=== PATIENT | male | born 2000 | race Caucasian/White ===

== ENCOUNTER 2023-09-22 09:29 | Outpatient (AMB) | payer BC, SELFPAY ==
--- NOTE | 2023-09-22 09:46 | HO.NEPHOV ---
Vital Signs 09/22/23 09:48 Height 5 ft 4 in Weight 136 lb 6 oz BMI 23.4 BP 110/74 Blood Pressure Location Lt brachial Position Sitting Pulse 56 Pulse Source Pulse Oximeter Pulse Oximetry (%) 99 Oxygen Delivery Method Room Air Intake Visit Reasons: Hypertension/ Conf Nitrocellulose Operator Required: No Accompanied by: Self / Same As Patient Allergies amoxicillin Allergy (Verified 09/22/23 09:50) Unknown bee venom protein (honey bee) Allergy (Verified 09/22/23 09:50) Hives HPI Comments Details: Wilfred was seen in the office in follow up for his hypertension. 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 His renal USS in the past has shown mildly smaller right kidney. He had split function of the kidneys which showed 65 % function on the left and 35 % on the right. He monitors his BP at home and has been at goal. He does not have any LVH, retinopathy or proteinuria. He has no headache, visual disturbance, orthostatic symptoms, nausea, vomiting, diarrhea, edema, chest pain , SOB, PND, orthopnea . He is not very strict with low sodium in the diet but tries to keep it down. He is tolerating ACEI . He has no specific complaints at the time of this office visit. [facility] Medical History (Updated 09/22/23 @ 10:15 by Adrián Escobedo MD) Essential (primary) hypertension Surgical History (Updated 09/22/23 @ 09:50 by Kacy Mix MA) History of kidney surgery Family History (Updated 09/22/23 @ 09:52 by Kacy Mix MA) Paternal Uncle Prostate cancer Social History Alcohol intake: current Comment: Socially Patient Tobacco Use Status: Never used Tobacco Physical Exam Const General: comfortable and no acute distress Orientation/consciousness: patient oriented x3 HEENT Head: Yes normocephalic Mouth: Normal oral and palatal mucosa present Eyes EOM: EOMs intact bilaterally Neck Neck: Yes supple Resp Auscultation: clear to auscultation bilaterally Cardio Jugular venous distension: no JVD Rate: regular rate GI Palpation (GI): Soft to palpation Auscultation: normal bowel sounds General: Yes no CVA tenderness Back/Spine/Pelvis Back: no CVA tenderness Skin General skin exam: no rashes or lesions noted Neuro General: patient oriented x3 and moves all extremities Extrem General: Yes no pedal edema Results Reviewed Nephrology Results: No Data to Display Assessment & Plan Assessment & Plan (1) Hypertension: Code(s): I10 - Essential (primary) hypertension Category: Medical Qualifiers: Hypertension type: secondary to other renal disorders Qualified Code(s): I15.1 - Hypertension secondary to other renal disorders Plan He has secondary hypertension- renal related - given H/O right UPJ obstruction. He has smaller right kidney. Split function of the kidneys showed 65 % on the left and 35 % on the right. His BP is at goal. He is tolerating ACEI without any side effects. I have ordered renal functions, electrolytes, urine for protein as well as renal USS. He has no orthostatic symptoms. He maintains good hydration. He avoids NSAID's. I did not make any medication changes today. All questions answered. F/U given. Orders: Orders Creatinine Today I10 - Essential (primary) hypertension Blood Urea Nitrogen Today I10 - Essential (primary) hypertension Protein Creatinine Ratio, Ur Today I10 - Essential (primary) hypertension US renal BI Today I10 - Essential (primary) hypertension Electrolytes Today I10 - Essential (primary) hypertension Coding Level of Care Code Est Pt Level 4 (34770) Diagnoses Hypertension secondary to other renal disorders I15.1 Hypertension type: secondary to other renal disorders
[2023-09-22 09:48] VITALS: BP 110/74; PULSE 56; O2SAT 99; BMI 23.4
== END 2023-09-22 10:24 | disposition home or self-care (01) ==
PROVIDERS: PCP Hospitalist; Visit Provider Internal Medicine Nephrology
DX: I15.1 Hypertension secondary to other renal disorders (principal)
CPT/HCPCS: 99214

== ENCOUNTER → 2023-09-22 09:29 | Outpatient (BNVA) | payer BC, SELFPAY | PROVIDERS: PCP Hospitalist; Visit Provider Internal Medicine Nephrology ==

== ENCOUNTER 2023-09-22 10:16 | Outpatient (REF) | payer BC, SELFPAY ==
[2023-09-22 14:53] LABS: Anion Gap 8 (12-20); Blood Urea Nitrogen 17 mg/dL (9-16); Carbon Dioxide 29 mmol/L (22-29); Chloride 106 mmol/L (96-108); Estimated Glomerular Filt Rate > 60; Potassium 4.2 mmol/L (3.3-5.1); Sodium 139 mmol/L (135-145)
[2023-09-22 15:32] LABS: Creatinine Urine 113.66 mg/dL; Total Protein Urine Random < 7 mg/dL (<12)
== END 2023-09-22 10:17 | disposition home or self-care (01) ==
LOC: HO.HKASLDS 10:16
PROVIDERS: Visit Provider Internal Medicine Nephrology
DX: I10 Essential (primary) hypertension (principal)
CPT/HCPCS: 36415; 80051; 82565; 82570; 84156; 84520

== ENCOUNTER 2023-10-03 07:59 | Outpatient (REF) | payer BC, SELFPAY ==
--- NOTE | ~2023-10-03 | US_ITS ---
EXAMINATION: US RETROPERITONEAL LIMITED (RENAL ONLY) CLINICAL INFORMATION: History of right UPJ obstruction. COMPARISON: None available. TECHNIQUE: Real-time ultrasound of the kidneys FINDINGS: RIGHT KIDNEY: 11.0 x 5.8 x 4.3 cm (SAG x AP x TRV). The kidney is normal in size, contour, and echogenicity. Renal cortical thickness is normal. No focal parenchymal lesions. No hydronephrosis. Question of a 0.2 x 0.2 x 0.2 cm nonobstructing calculus in the mid kidney, not located in the UPJ region. LEFT KIDNEY: 12.3 x 6.7 x 5.0 cm (SAG x AP x TRV). The kidney is normal in size, contour, and echogenicity. Renal cortical thickness is normal. No calculi or focal parenchymal lesions. No hydronephrosis. US/US renal BI IMPRESSION: 1. Question of 0.2 cm nonobstructing calculus in the mid right kidney, not located in the UPJ region. 2. Normal appearance of the left kidney.
== END 2023-10-03 08:00 | disposition home or self-care (01) ==
LOC: HO.US 07:59
PROVIDERS: PCP Hospitalist; Visit Provider Internal Medicine Nephrology
DX: I10 Essential (primary) hypertension (principal)
CPT/HCPCS: 76775

== ENCOUNTER 2024-10-04 10:40 | Outpatient (AMB) | payer BC, SELFPAY ==
--- NOTE | 2024-10-04 10:44 | HO.NEPHOV_ITS ---
Vital Signs 10/04/24 10:45 Weight 134 lb 8 oz BP 118/78 Blood Pressure Location Lt brachial Position Sitting Pulse 59 Pulse Source Pulse Oximeter Pulse Oximetry (%) 99 Oxygen Delivery Method Room Air Intake Visit Reasons: 1 yr follow up-Conf Intake Note: Patient here for a follow-up. Superannuation Clerk Required: No Accompanied by: Self / Same As Patient Allergies amoxicillin Allergy (Verified 10/04/24 10:45) Unknown bee venom protein (honey bee) Allergy (Verified 10/04/24 10:45) Hives Do you need a note to return to daycare/school/sports/work: No HPI Comments Details: Wilfred was seen in the office in follow up for his hypertension. 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 His renal USS in the past has shown mildly smaller right kidney. He had split function of the kidneys which showed 65 % function on the left and 35 % on the right. He monitors his BP at home and has been at goal. He does not have any LVH, retinopathy or proteinuria. He has no headache, visual disturbance, orthostatic symptoms, nausea, vomiting, diarrhea, edema, chest pain , SOB, PND, orthopnea . He is not very strict with low sodium in the diet but tries to keep it down. He is tolerating ACEI . He has no specific complaints at the time of this office visit. [facility] Medical History Essential (primary) hypertension Surgical History History of kidney surgery Family History Paternal Uncle Prostate cancer Social History Alcohol intake: current Comment: Socially Patient Tobacco Use Status: Never used Tobacco Review of Systems Const All systems reviewed & are unremarkable except as noted in HPI and below Physical Exam Vital Signs: Last Vital Signs Pulse 59 10/04/24 10:45 BP 118/78 10/04/24 10:45 Pulse Ox 99 10/04/24 10:45 Oxygen Delivery Method Room Air 10/04/24 10:45 Const General: comfortable and no acute distress Orientation/consciousness: patient oriented x3 HEENT Head: Yes normocephalic Mouth: Normal oral and palatal mucosa present Eyes EOM: EOMs intact bilaterally Neck Neck: Yes supple Resp Auscultation: clear to auscultation bilaterally Cardio Jugular venous distension: no JVD Rate: regular rate GI Palpation (GI): Soft to palpation Auscultation: normal bowel sounds General: Yes no CVA tenderness Back/Spine/Pelvis Back: no CVA tenderness Skin General skin exam: no rashes or lesions noted Neuro General: patient oriented x3 and moves all extremities Extrem General: Yes no pedal edema Results Reviewed Nephrology Results: Sodium, (135-145) 139 mmol/L 09/22/23 Potassium, (3.3-5.1) 4.2 mmol/L 09/22/23 Chloride, (96-108) 106 mmol/L 09/22/23 Carbon Dioxide, (22-29) 29 mmol/L 09/22/23 BUN, (9-16) 17 mg/dL H 09/22/23 Creatinine, (0.5-1.4) 0.91 mg/dL 09/22/23 Urine Creatinine 113.66 mg/dL 09/22/23 Protein/Creatinin Ratio TNP 09/22/23 Renal US 10/03/23 Assessment & Plan Assessment & Plan (1) Hypertension: Code(s): I10 - Essential (primary) hypertension Category: Medical Qualifiers: Hypertension type: secondary to other renal disorders Qualified Code(s): I15.1 - Hypertension secondary to other renal disorders (2) Renal calculus: Code(s): N20.0 - Calculus of kidney Category: Medical Plan He has secondary hypertension- renal related - given H/O right UPJ obstruction. He has smaller right kidney. Split function of the kidneys showed 65 % on the left and 35 % on the right. His BP is at goal. He is tolerating ACEI without any side effects. I have ordered renal functions, electrolytes, urine for protein as well as renal USS. He has no orthostatic symptoms. He maintains good hydration. He avoids NSAID's. I did not make any medication changes today. All questions answered. F/U given. Orders: Orders Blood Urea Nitrogen Today I15.1 - Hypertension secondary to other renal disorders, N20.0 - Calculus of kidney Protein Creatinine Ratio, Ur Today I15.1 - Hypertension secondary to other renal disorders, N20.0 - Calculus of kidney Electrolytes Today I15.1 - Hypertension secondary to other renal disorders, N20.0 - Calculus of kidney Creatinine Today I15.1 - Hypertension secondary to other renal disorders, N20.0 - Calculus of kidney Calcium Today I15.1 - Hypertension secondary to other renal disorders, N20.0 - Calculus of kidney US renal BI 1 Month I15.1 - Hypertension secondary to other renal disorders, N20.0 - Calculus of kidney Medications: Refilled lisinopril 10 mg PO DAILY 90 tabs 4RF Coding Level of Care Code Est Pt Level 4 (59393) Diagnoses Hypertension secondary to other renal disorders I15.1 Hypertension type: secondary to other renal disorders Renal calculus N20.0
[2024-10-04 10:45] VITALS: BP 118/78; PULSE 59; O2SAT 99
--- OUTSIDE RECORDS SUMMARY | 2024-10-04 12:29 | XMS_ITS | Clinical Summary ---
Author Organization [facility] Address [address] [facility] [address] [place] [address] Phone Care Team Providers Care Triage Register Nurse Name Role Phone Yung Cancino MD Primary Care Provider Allergies Active Allergy Reactions Criticality Noted Date Comments Amoxicillin Other (see comments) 08/29/2020 Bee Venom Hives 10/03/2020 Medications lisinopril 10 MG tablet TAKE 1 TABLET BY MOUTH EVERY DAY 90 tablet 3 06/01/2022 Active EPINEPHrine (EPIPEN) 0.3 MG/0.3ML injection syringe INJECT 1 SYRINGE ONCE NEEDED DIRECTED 2PK 07/15/2022 Active Active Problems Problem Noted Date Diagnosed Date Essential hypertension 10/03/2020 Seasonal allergic conjunctivitis 10/03/2020 Immunizations Immunization Administration Dates Next Due DTaP 03/29/2003, 0,1998,1998,0 1998 Hep B, Adolescent or Pediatric 09/29/1999,1998,1998 HiB 07/13/1999,1998,1998 ,1998 IPV 03/29/2003,09/29/1999,1998 ,1998 MMR 03/29/2002,07/13/1999 Meningococcal MCV4P 12/02/2014,08/22/2009 Tdap 08/22/2009 Varicella 05/20/2008,03/30/1999 Family History Relation Status Comments Father Alive Mother Alive Social History Tobacco Use Types Packs/Day Years Used Date Smoking Tobacco: Never Smokeless Tobacco: Never Tobacco Cessation:Counseling Given: Not Answered Alcohol Use Standard Drinks/Week Comments Yes 0 (1 standard drink = 0.6 oz pure alcohol) Alcoholic Drinks/day: Occasional social drink Sex and Gender Information Value Date Recorded Sex Assigned at Not on file Legal Sex Male 4:56 PM EST Gender Identity Not on file Sexual Orientation Not on file Last Filed Vital Signs Vital Sign Reading Time Taken Comments Blood Pressure 120/72 10/05/2022 1:10 PM EDT Pulse 72 10/05/2022 1:10 PM EDT Temperature - - Respiratory Rate - - Oxygen Saturation - - Inhaled Oxygen Concentration - - Weight 64 kg (141 lb) 10/05/2022 1:10 PM EDT Height 165.1 cm (5' 5 ) 12/18/2019 12:00 PM EDT Body Mass Index 23.46 12/18/2019 12:00 PM EDT Plan of Treatment Health Maintenance Due Date Last Done Comments Pneumococcal Vaccine: Peds ( 0 to 5 Years) and At-Risk Patients (6 to 49 Years) (1 of 2 - PCV) 2017 Influenza Vaccine (Season Ended) 2024 Hepatitis B Vaccine Completed 09/29/1999, 1998, 1998 Insurance [facility] Care Teams Triage Register Nurse Relationship Specialty Start Date End Date Yung Cancino MD [address] [place] [address] PCP - General Internal Medicine 10/06/21
== END 2024-10-04 11:12 | disposition home or self-care (01) ==
LOC: HO.HKAS 10:40
PROVIDERS: PCP Hospitalist; Visit Provider Internal Medicine Nephrology
DX: I15.1 Hypertension secondary to other renal disorders (principal); N20.0 Calculus of kidney
CPT/HCPCS: 99214

== ENCOUNTER 2024-10-04 10:40 | Outpatient (REF) | payer BC, SELFPAY ==
[2024-10-04 18:14] LABS: Creatinine Urine 82.47 mg/dL; Total Protein Urine Random < 7 mg/dL (<12)
[2024-10-04 18:23] LABS: Anion Gap 11 (12-20); Blood Urea Nitrogen 15 mg/dL (9-16); Calcium 9.3 mg/dL (8.4-10.2); Carbon Dioxide 28 mmol/L (22-29); Chloride 105 mmol/L (96-108); Estimated Glomerular Filt Rate > 60; Potassium 4.2 mmol/L (3.3-5.1); Sodium 140 mmol/L (135-145)
== END 2024-10-04 10:41 | disposition home or self-care (01) ==
LOC: HO.HKASLDS 10:40
PROVIDERS: PCP Hospitalist; Visit Provider Internal Medicine Nephrology
DX: I15.1 Hypertension secondary to other renal disorders (principal); N20.0 Calculus of kidney
CPT/HCPCS: 36415; 80051; 82310; 82565; 82570; 84156; 84520

== ENCOUNTER 2024-11-06 08:57 | Outpatient (REF) | payer BC, SELFPAY ==
--- NOTE | ~2024-11-06 | US_ITS ---
CLINICAL HISTORY: I15.1 - Hypertension secondary to other renal disorders --- Additional Notes or Special Instructions: F U of renal calculus US of kidneys Comparison: US/SR - US KIDNEY BILATERAL - 10/03/2023 08:04 AM EDT Findings: Right kidney is normal in size, echogenicity and morphology, 11.6 cm in length. No calculus, mass or hydronephrosis. Left kidney is normal in size, echogenicity and morphology, 13.0 cm in length. No calculus, mass or hydronephrosis. Limited color Doppler demonstrates unremarkable bilateral blood flow. Impression: Normal renal ultrasound. This document has been electronically signed by: Lexy Harrison MD on 11/06/2024 15:21:36
--- OUTSIDE RECORDS SUMMARY | 2024-11-06 09:15 | XMS_ITS | Clinical Summary ---
Author Organization [facility] Address [address] [facility] [address] [place] [address] Phone Care Team Providers Care Telecommunications Analyst Name Role Phone Yung Cancino MD Primary Care Provider [phone] Allergies Active Allergy Reactions Criticality Noted Date [...] of 2 - PCV) 2017 Influenza Vaccine (#1) 2024 Hepatitis B Vaccine Completed 09/29/1999, 1998, 1998 Insurance [facility] Care Teams Telecommunications Analyst Relationship Specialty Start Date End Date Yung Cancino MD [address] [place] [address] PCP - General Internal Medicine 10/06/21
--- OUTSIDE RECORDS SUMMARY | 2024-11-06 09:15 | XMS_ITS | Patient Health Record ---
Author Organization [facility] Formerly [facility] Address [address] [place] [address] Care Team Providers Care Tax Specialist Name Role Phone JOSE RAMON LARA Primary Care Provider [phone] Harris Stewart Unavailable [phone] Allergies Allergen (clinical drug ingredient) Drug/Non Drug Allergy documented on EMR Reaction Allergy Type Onset Date Status amoxicillin Amoxicillin hives Drug Allergy Act tahira Bee Sting hives Allergy Active Results Component Value Reference Range Notes Glucose-[id number] Reviewed date:05/13/2024 10:33:34 PM Interpretation: Performing Lab:[facility], [address] [place] [address], Phone - [phone], [facility] Notes/Report: Glucose 86 70-99 mg/dL Vitamin D, 76-Snlmphd-[id number] Reviewed date:06/11/2024 03:25:10 PM Interpretation: Performing Lab:[facility], [address] [place] [address], Phone - [phone], [facility] Notes/Report: Vitamin D, 25-Hydroxy 36.7 30.0-100.0 ng/mL Vitamin D deficiency has been defined by the [place] [employer] and an Endocrine Society practice guideline as a level of serum 25-OH vitamin D less than 20 ng/mL (1,2). The Endocrine Society went on to further define vitamin D insufficiency as a level between 21 and 29 ng/mL (2). 1. IOM ([place] [employer]). 2010. Dietary reference intakes for calcium and D. [place]: The National Academies Press. 2. Chuck MF, Susie NC, Pranay WIN, et al. Evaluation, treatment, and prevention of vitamin D deficiency: an Endocrine Society clinical practice guideline. JCEM. 2010; 96(7):1911-30. TSH+Free T4 Reviewed date:06/11/2024 03:25:04 PM Interpretation: Performing Lab:[facility], [address] [facility], Phone - [phone], Director - [facility] Notes/Report: TSH-ICMA 1.9 Reference Range: Non- Adult 0.450-4.500 Free T4 by Dialysis/Manager Lvn 1.6 This test was developed and its performance characteristics determined by [facility]. It has not been cleared or approved by the Food and Drug Administration. Reference Range: Pubertal Children and Adults: 0.8 - 1.7 Comp. Metabolic Panel (14)-3 [id number] Reviewed date:04/27/2024 08:02:03 AM Interpretation: Performing Lab:[facility]anne [facility]go, [address] [facility], Phone - [phone], Director - [facility] Notes/Report: Glucose 100 70-99 mg/dL BUN 13 6-20 mg/dL Creatinine 0.93 0.76-1.27 mg/dL eGFR 116 >59 mL/min/1.73 BUN/Creatinine Ratio 14 9-20 Sodium 139 134-144 mmol/L Potassium 4.7 3.5-5.2 mmol/L Chloride 103 96-106 mmol/L Carbon Dioxide, Total 24 20-29 mmol/L Calcium 9.7 8.7-10.2 mg/dL Protein, Total 6.7 6.0-8.5 g/dL Albumin 4.4 4.3-5.2 g/dL Globulin, Total 2.3 1.5-4.5 g/dL Bilirubin, Total 0.9 0.0-1.2 mg/dL Alkaline Phosphatase 73 44-121 IU/L AST (SGOT) 28 0-40 IU/L ALT (SGPT) 33 0-44 IU/L Lipid Panel-[id number] Reviewed date:04/27/2024 08:02:08 AM Interpretation: Performing Lab:Joanne Ngo, [address] [facility], [place], Phone - [phone], Director - [facility] Notes/Report: Cholesterol, Total 138 100-199 mg/dL Triglycerides 51 0-149 mg/dL HDL Cholesterol 45 >39 mg/dL VLDL Cholesterol Mitch 11 5-40 mg/dL LDL Chol Calc (NIH) 82 0-99 mg/dL Albumin/Creatinine Ratio,Uri ne-[id number] Reviewed date:04/27/2024 08:02:15 AM Interpretation: Performing Lab:[facility], [address], [place], Phone - [phone], Director - Mao Notes/Report: Creatinine, Urine 91.0 Not Estab. mg/dL Albumin, Urine <3.0 Not Estab. ug/mL Alb/Creat Ratio <3 0-29 mg/g creat Normal: 0 - 29 Moderately increased: 30 - 300 Severely increased: >300 Reason For Referral No Information Medications Medication SIG (Take, Route, Frequency, Duration) Notes Start Date End Date Status EpiPen 2-Zeus 0.3 MG/0.3ML as directed In jection once, as needed; Duration: 90 days 07/01/2020 Active EPINEPHrine 0.3 MG/0.3ML INJECT 1 SYRING E ONCE NEEDED DIRECTED; Duration: 2 Active Lisinopril 10 MG 1 tablet Orally Once a day Active Multivitamin - 1 tablet Orally Once a day Active Immunizations Vaccine Route Administration Date Status Comme nts TDAP Unknown 08/22/2009 Administered Social History Tobacco Use: Social History Observation Description Date Details (start date - stop date) Never Smoker NA - NA Tobacco Use/Smoking Question Answer Notes Are you a nonsmoker AUDIT-C (Standard) Question Answer Notes Did you have a drink contain ing alcohol in the past year? Yes How often did you have six o r more drinks on one occasion in the past year? Less than monthly (1 point) How many drinks did you have on a typical day when you were drinking in the past year? 1 or 2 drinks (0 point) How often did you have a dri nk containing alcohol in the past year? 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 Problem Essential hypertension (01295348) Essential (primary) hypertension (I10) Active confirmed Vital Signs Heart Rate 51 /min 10/24/2024 Temperature 97.0 degrees Fahrenheit 10/24/2024 Blood pressure diastolic 74 mm Hg 10/24/2024 Oximetry 100 % 10/24/2024 Height 64 in 10/24/2024 Blood pressure systolic 110 mm Hg 10/24/2024 Weight 132.7 lbs 10/24/2024 BMI 22.78 kg/m2 10/24/2024 Encounters Encounter Location Date Provider Diagnosis [facility] [address] [place] [address] 04/26/2024 Harris Stewart Encounter for genera l adult medical examination without abnormal findings Z00.00 ; Essential (primary) hypertension I10 and Congenital occlusion of ureteropelvic junction Q62.11 [facility] [address] [place] [address] 10/24/2024 Harris Stewart Hypertension seconda ry to other renal disorders I15.1 and Congenital occlusion of ureteropelvic junction Q62.11 [facility] [address] [place] [address] 04/13/2024 JOSE RAMON LARA Essential (primary) hypertension I10 and Encounter for screening for cardiovascular disorders Z13.6 [facility] [address] [facility] [address] [place] [address] 09/28/2024 JOSE RAMON LARA Assessments Encounter Date Diagnosis (ICD Code) Assessment Notes Treatment Notes Treatment Clinical Notes Section Notes 04/13/2024 Essential (primary) hypertension (ICD-10 - I10) 04/26/2024 Encounter for general adult medical examination without abnormal findings (ICD-10 - Z00.00) Mr. Eden is a 24 year old gentleman with hypertension here for annual physical. Plan is as follows: Hypertension. -BP well controlled on Lisinopril 10 MG daily. Continue on the same regimen. He follows up with Dr. Escobedo. - He recently had renal ultrasound done September 2023. With a question of 0.2 cm nonobstructing calculus in the mid right kidney not located in the UPJ region. He has a follow-up ultrasound of the renal coming up next month. EKG is performed in the office today Heart rate of 65 bpm, QTC of 378. No ST elevation or depression. No bundle branch block. Normal intervals. Check TSH and vitamin D Glucose of 100 He mentionedThat it was a nonfasting blood work, we will repeat glucose test Vision screening: Is up-to-date Dental screening is up-to-date Patient declines Vaccinations. General concerns have been discussed Blood work reviewed with patient and questions answered. I have rendered the services for this patient under direct supervision of Dr. Lara, who did not see the patient but was available upon request 04/26/2024 Essential (primary) hypertension (ICD-10 - I10) Mr. Eden is a 24 year old gentleman with hypertension here for annual physical. Plan is as follows: Hypertension. -BP well controlled on Lisinopril 10 MG daily. Continue on the same regimen. He follows up with Dr. Escobedo. - He recently had renal ultrasound done September 2023. With a question of 0.2 cm nonobstructing calculus in the mid right kidney not located in the UPJ region. He has a follow-up ultrasound of the renal coming up next month. EKG is performed in the office today Heart rate of 65 bpm, QTC of 378. No ST elevation or depression. No bundle branch block. Normal intervals. Check TSH and vitamin D Glucose of 100 He mentionedThat it was a nonfasting blood work, we will repeat glucose test Vision screening: Is up-to-date Dental screening is up-to-date Patient declines Vaccinations. General concerns have been discussed Blood work reviewed with patient and questions answered. I have rendered the services for this patient under direct supervision of Dr. Lara, who did not see the patient but was available upon request 10/24/2024 Hypertension secondary to other renal disorders (ICD-10 - I15.1) Mr. Eden is a 24 year old gentleman with hypertension here for annual physical. Plan is as follows: Hypertension. -BP well controlled on Lisinopril 10 MG daily. Continue on the same regimen. He follows up with Dr. Escobedo. - He has a follow-up ultrasound of the renal coming up next month. He had a recent comp done at the [facility] and levels were within normal limits General concerns have been discussed Blood work reviewed with patient and questions answered. I have rendered the services for this patient under direct supervision of Dr. Lara, who did not see the patient but was available upon request 10/24/2024 Congenital occlusion of ureteropelvic junction (ICD-10 - Q62.11) Mr. Eden is a 24 year old gentleman with hypertension here for annual physical. Plan is as follows: Hypertension. -BP well controlled on Lisinopril 10 MG daily. Continue on the same regimen. He follows up with Dr. Escobedo. - He has a follow-up ultrasound of the renal coming up next month. He had a recent comp done at the [facility] office and levels were within normal limits General concerns have been discussed Blood work reviewed with patient and questions answered. I have rendered the services for this patient under direct supervision of Dr. Lara, who did not see the patient but was available upon request 04/26/2024 Congenital occlusion of ureteropelvic junction (ICD-10 - Q62.11) Mr. Eden is a 24 year old gentleman with hypertension here for annual physical. Plan is as follows: Hypertension. -BP well controlled on Lisinopril 10 MG daily. Continue on the same regimen. He follows up with Dr. Escobedo. - He recently had renal ultrasound done September 2023. With a question of 0.2 cm nonobstructing calculus in the mid right kidney not located in the UPJ region. He has a follow-up ultrasound of the renal coming up next month. EKG is performed in the office today Heart rate of 65 bpm, QTC of 378. No ST elevation or depression. No bundle branch block. Normal intervals. Check TSH and vitamin D Glucose of 100 He mentionedThat it was a nonfasting blood work, we will repeat glucose test Vision screening: Is up-to-date Dental screening is up-to-date Patient declines Vaccinations. General concerns have been discussed Blood work reviewed with patient and questions answered. I have rendered the services for this patient under direct supervision of Dr. Lara, who did not see the patient but was available upon request 04/13/2024 Encounter for screening for cardiovascular disorders (ICD-10 - Z13.6) Plan Of Treatment Next Appt Details Provider Name:JOSE RAMON LARA , 07/05/2025 10:00:00 AM, [address] [place] [address], [phone], Insurance Providers Payer Name Payer Address Payer Phone Subscriber Number Group Number Insured Name Patient Relationship to Insured Coverage Start Date Coverage End Date [facility] [id number] [place] [address] [id number] Wilfred Eden Self - patient is the insured Medical (General) History Medical History History ICD Code hypertension Follows up with Dr. Escobedo Surgical History Surgery Date(Month/Year) Congenital right uterovesical obstructio n and correction
== END 2024-11-06 08:58 | disposition home or self-care (01) ==
LOC: HO.HMGCX 08:57
PROVIDERS: PCP Hospitalist; Visit Provider Internal Medicine Nephrology
DX: I15.1 Hypertension secondary to other renal disorders (principal); N20.0 Calculus of kidney
CPT/HCPCS: 76775

== ENCOUNTER → 2024-11-06 08:59 | Outpatient (BNV) | payer BC, SELFPAY | PROVIDERS: PCP Hospitalist; Visit Provider Radiology Diagnostic Radiology | DX: I15.1 Hypertension secondary to other renal disorders (principal) | CPT/HCPCS: 76775 ==